=== PATIENT | female | born 1945 | race Caucasian/White ===

== ENCOUNTER 2020-01-26 18:27 | Emergency (ER) | payer OTHER ==
[~2020-01-26] VITALS: Ht 160 cm; Wt 120.2 kg
[~2020-01-26 18:27] MED LIST: ASPIRIN325 PO; CELEXA40 MG PO; ENOXAPARIN40 MG/0.1 SUBQ; HYDROCORTISO453.6 G1 TOP; IBUPROFEN 800800 M1 PO; LISINOPRIL10 MG PO; METAMUCIL PAC1 UDPKT PO; MILK OF MA2400 MG/10 PO; NORCO 5-325 TA1 EACH PO; OMEPRAZOLE40 MG PO; OXYBUTYNIN 5 MG5 M2 PO; OXYCODONE HCL 55 MG PO; PRILOSEC40 MG PO; PROBIOTIC1 EAC1 PO; TACLONEX 0.005%60 GM TOP; TEMOVATE15 GM TOP; VIT D3; VITAMIN D5000 UNIT PO; ZYRTEC10 M2 PO; ZYRTEC10 MG PO
[2020-01-26] MEDS ORDERED: IBUPROFEN 600600 M1 PO (19:34)
[2020-01-26] MEDS ORDERED: TYLENOL WITH CO1 TA1 PO (19:34)
[2020-01-26 19:56] VITALS: BP 133/75
== END 2020-01-26 19:57 | disposition home or self-care (01) ==
LOC: M.ERS 18:27
DX: S52.501A Unspecified fracture of the lower end of right radius, initial encounter for closed fracture (principal); S00.03XA Contusion of scalp, initial encounter; I10 Essential (primary) hypertension; K21.9 Gastro-esophageal reflux disease without esophagitis; F32.9 Major depressive disorder, single episode, unspecified; Z90.710 Acquired absence of both cervix and uterus; Z90.49 Acquired absence of other specified parts of digestive tract; Z98.51 Tubal ligation status; W18.39XA Other fall on same level, initial encounter; Y93.89 Activity, other specified; Y92.89 Other specified places as the place of occurrence of the external cause; Y99.8 Other external cause status

== ENCOUNTER 2021-09-01 09:43 | Emergency (ER) | payer OTHER ==
[~2021-09-01] VITALS: Ht 160 cm; Wt 113.4 kg
[~2021-09-01 09:43] MED LIST changes: +IBUPROFEN 600600 M1 PO; +TYLENOL WITH CO1 TA1 PO
[2021-09-01] MEDS ORDERED: ALDENDRONATE PO (10:00)
[2021-09-01] MEDS ORDERED: HYDROCODON-ACE1 EAC7 PO (12:08)
[2021-09-01 12:59] VITALS: BP 131/73
== END 2021-09-01 13:00 | disposition home or self-care (01) ==
LOC: M.ERS 09:43
DX: S62.512A Displaced fracture of proximal phalanx of left thumb, initial encounter for closed fracture (principal); S00.83XA Contusion of other part of head, initial encounter; S09.90XA Unspecified injury of head, initial encounter; K21.9 Gastro-esophageal reflux disease without esophagitis; I10 Essential (primary) hypertension; F32.9 Major depressive disorder, single episode, unspecified; Z98.51 Tubal ligation status; Z90.710 Acquired absence of both cervix and uterus; Z90.89 Acquired absence of other organs; Z79.899 Other long term (current) drug therapy; W10.8XXA Fall (on) (from) other stairs and steps, initial encounter; Y93.89 Activity, other specified; Y92.89 Other specified places as the place of occurrence of the external cause; Y99.8 Other external cause status